=== PATIENT | male | born 1990 | race Caucasian/White ===

== ENCOUNTER 2022-01-04 12:41 | Emergency (ER) | payer MEDICAID ==
[~2022-01-04] VITALS: Ht 170.2 cm; Wt 100.0 kg
[2022-01-04] MEDS ORDERED: KETOROLAC 60MG/2ML VIAL IM ONE (13:30)
[2022-01-04 14:39] VITALS: BP 113/58
[2022-01-04 15:58] LABS: BASOPHILS % 0.7 % (0.0-2.0); EOSINOPHILS % 4.1 % (0.0-5.0); HEMATOCRIT. 46.7 % (42.0-52.0); HEMOGLOBIN. 15.6 g/dL (14.0-18.0); LYMPHOCYTES % 26.6 % (20.0-50.0); MEAN CORPUSCULAR HEMOGLOBIN 28.6 pg (28.0-32.0); MEAN PLATELET VOLUME 9.8 fl (7.4-10.4); MONOCYTES % 7.8 % (2.0-8.0); NEUTROPHILS % 60.8 % (40.0-76.0); PLATELET 183 x1000/uL (130-400); RED BLOOD CELL COUNT 5.43 mill/uL (4.7-6.1); RED CELL DISTRIBUTION WIDTH 13.2 % (11.6-14.6)
[2022-01-04 16:00] LABS: CHLORIDE 105 mEq/L (98-107)
[2022-01-04 16:21] LABS: CLARITY URINE CLEAR (CLEAR); COLOR URINE DARK YELLOW (YELLOW); KETONES URINE TRACE (NEGATIVE); LEUKOCYTE ESTERASE URINE TRACE (NEGATIVE); NITRITE URINE NEGATIVE (NEGATIVE); OCCULT BLOOD URINE NEGATIVE (NEGATIVE); PH URINE 5.5 (4.5-8.0); PROTEIN URINE 1+ (NEGATIVE); SPECIFIC GRAVITY URINE 1.035 (1.005-1.030)
[2022-01-04] MEDS ORDERED: IBUP-2029 MT (16:24)
[2022-01-04] MEDS ORDERED: CEFP200T13 MT (16:25)
== END 2022-01-04 16:31 | disposition home or self-care (01) ==
LOC: ER 13:20
DX: N44.2 Benign cyst of testis (principal)
CPT/HCPCS: 36415; 76870; 80048; 81003; 85025; 87086; 93976; 96372; 99284; J1885